=== PATIENT | female | born 1990 | race Caucasian/White ===

== ENCOUNTER → 2018-07-14 11:07 | Outpatient (CLI) | payer MEDICAID, SELFPAY ==
[2018-07-14 10:27] VITALS: BMI 24.2
[2018-07-14 13:10] LABS: Absolute Lymphocyte Count 2.04 X10^3/ul (0.83-4.51); Absolute Neutrophil Count 3.5 X10^3/uL (2.0-7.7); Basophil# 0.04 X10^3/uL; Basophil% 0.6 % (0-1); Eosinophil# 0.14 X10^3/uL; Eosinophils% 2.2 % (0-5); Hematocrit 40.9 % (37-47); Lymphocyte # 2.04 X10^3/ul (4.0); Lymphocyte % 32.6 % (19-41); Mean Corp Hgb Conc 31.8 g/gl (32-36); Mean Corpuscular Volume 88.1 fL (81-99); Monocyte# 0.54 X10^3/uL; Monocyte% 8.6 % (0-10); Neutrophil # 3.47 X10^3/uL (2.7-7.7); Neutrophil % 55.7 % (47-70); POSITIVE COUNT NO; POSITIVE DIFFERENTIAL NO; POSITIVE MORPHOLOGY NO; Platelet Count 254 K/mm3 (150-450); RBC Distribution Width CV 14.3 % (11.6-14.6); RBC Distribution Width SD 45.7 fl (35.1-43.9); Red Blood Count 4.64 M/mm3 (4.2-5.4); White Blood Count 6.3 K/mm3 (4.4-11.0)
[2018-07-14 13:29] LABS: ALB/GLOB Ratio 0.9 RATIO (0.9-2.4); AST(SGOT) 17 U/L (15-37); Alanine Aminotransfer ALT/SGPT 18 U/L (13-56); Albumin, Serum 3.8 g/dL (3.2-5.0); Alkaline Phosphatase 84 U/L (45-117); Anion Gap 6 (5-15); BUN 16 mg/dL (7-18); BUN/Creat Ratio 21.4 RATIO (10-20); Calcium,Total 8.9 mg/dL (8.5-10.1); Chloride 106 mmol/L (98-107); Creatinine, Serum 0.75 mg/dL (0.55-1.02); EST Glomerular Filtration Rate 98 mL/min (>60); Est Glom Filt Rate - Afr Amer 118 mL/min (>60); Globulin 4.2 g/dL (2.2-4.2); Glucose 86 mg/dL (74-106); Potassium 4.5 mmol/L (3.5-5.1); Sodium Level 139 mmol/L (136-145); Thyroid Stim Hormone (TSH) 4.87 uIU/mL (0.358-3.74)
[2018-07-14 14:06] LABS: HIV - WCH Non-Reactive (Nonreactive)
[2018-07-15 06:06] LABS: HEPATITIS B SURFACE AG Negative (Negative); Hepatitis A AB, Total Negative (Negative); Hepatitis A IgM Antibody Negative (Negative); Hepatitis B Core AB IgM Negative (Negative); Hepatitis B Core Ab Total Negative (Negative); Hepatitis C Ab <0.1 s/co ratio (0.0-0.9)
[2018-07-15 11:25] LABS: Hep B Surface Antibodies Non Reactive (.)
[2018-07-20 16:27] LABS: T4 Free Direct 0.87 ng/dL (0.76-1.46)
== END ==
PROVIDERS: PCP Internal Medicine; Visit Provider Nurse Practitioner Family
DX: F19.10 Other psychoactive substance abuse, uncomplicated (principal); F32.9 Major depressive disorder, single episode, unspecified; F41.9 Anxiety disorder, unspecified
CPT/HCPCS: 36415; 80053; 84439; 84443; 85025; 86703; 86704; 86705; 86706; 86708; 86709; 86803; 87340

== ENCOUNTER 2019-05-05 21:55 | Emergency (ER) | payer MEDICAID, SELFPAY ==
[2018-08-12 11:41] VITALS: BMI 24.2
[2019-05-05 21:56] VITALS: BP 108/69; PULSE 90; RESP 18; TEMP 36.4; O2SAT 97; BMI 25.6
--- NOTE | 2019-05-05 22:09 | ED.VISSUMM ---
- ER Visit Summary Date of Service: 05/05/19 Chief Complaint: Left leg abscess History of Present Illness: The patient is a 28 F who presents with an abscess to her left leg that has been getting worse over the last 4 days. Patient states it started draining today. Patient denies any fevers or chills. Patient denies any radiation of the pain. Patient states the pain is localized to the left popliteal fossa. Patient denies any paresthesias or weakness. Physical Examination: Vital signs are stable. Patient is afebrile. Patient is in no acute distress. Skin is warm dry. There is tenderness and induration over the left popliteal area. There is an open abscess in the popliteal fossa. There is some mild purulent drainage noted. There is no fluctuance. There is full range of motion of the left knee. Sensation was intact to light touch bilaterally in the lower extremities. Emergency Department Course and Treatment: The abscess is already open and is currently draining. I was able to express some purulent material from the abscess. There is also some bleeding noted from the abscess. There does not appear to be any further purulent material in the abscess. Patient was instructed to use warm compresses to the area. Patient was given a prescription for Keflex. Patient was instructed to follow-up with a primary care physician in 5 to 7 days. Patient was given a referral since she does not have a primary care physician. Patient understood and was agreeable with the plan. All questions were answered. Disposition: Discharge home Impression: Abscess left popliteal fossa This note was generated with [employer] dictation software. It may contain incorrect words, spelling, and punctuation that were not noted in review of the chart prior to signing ED Disposition - Plan for ED Patient: Disposition: Home or Assisted Living Diagnosis: Abscess of left lower leg Instructions: ABSCESS, Antiobiotic Treatment Only Prescriptions: Cephalexin [Keflex] 500 mg PO Q6 #40 cap Prescription Printed Referrals: Care Physician,No Primary [Primary Care Provider] - Korey Hartman MD [STAFF PHYSICIAN] - 5-7 Days
[2019-05-05] MEDS: Cephalexin 250 MG Capsule 500 MG PO (22:26)
== END 2019-05-05 22:29 | disposition home or self-care (01) ==
LOC: ED 22:16
PROVIDERS: Emergency Provider Emergency Medicine
DX: L02.416 Cutaneous abscess of left lower limb (principal); F32.9 Major depressive disorder, single episode, unspecified; F41.9 Anxiety disorder, unspecified; Z79.899 Other long term (current) drug therapy; F17.200 Nicotine dependence, unspecified, uncomplicated
CPT/HCPCS: 99283

== ENCOUNTER → 2024-07-07 | Outpatient (CLI) | payer BC, SELFPAY ==
[2024-07-07 17:52] LABS: Absolute Lymphocyte Count 2.37 X10^3/uL (0.83-4.51); Absolute Neutrophil Count 2.3 X10^3/uL (2.0-7.7); Basophil# 0.05 X10^3/uL; Eosinophil# 0.07 X10^3/uL; Eosinophils% 1.4 % (0-5); Hematocrit 35.7 % (37-47); Hemoglobin 12.1 g/dL (12.0-15.0); Lymphocyte # 2.37 X10^3/ul (0.83-4.51); Mean Corp Hgb Conc 33.9 g/dL (32-36); Mean Corpuscular Volume 88.4 fL (81-99); Mean Platelet Vol. 10.5 fl (6.2-12.0); Monocyte# 0.39 X10^3/uL; Monocyte% 7.6 % (0-10); NRBC Flagged by Analyzer 0 % (0-5); Neutrophil # 2.25 X10^3/uL (2.7-7.7); Neutrophil % 43.6 % (47-70); Platelet Count 239 K/mm3 (150-450); RBC Distribution Width CV 11.9 % (11.6-14.6); RBC Distribution Width SD 39.1 fl (35.1-43.9); Red Blood Count 4.04 M/mm3 (4.2-5.4); White Blood Count 5.2 K/mm3 (4.4-11.0)
[2024-07-07 19:13] LABS: ALB/GLOB Ratio 1.5 RATIO (0.9-2.4); AST(SGOT) 23 U/L (<=31); Alanine Aminotransfer ALT/SGPT 14 U/L (<=34); Albumin, Serum 4.4 g/dL (3.5-5.0); Alkaline Phosphatase 59 U/L (35-104); Anion Gap 12 (5-15); BUN 17 mg/dL (4-19); BUN/Creat Ratio 23.3 RATIO (10-20); Calcium,Total 9.4 mg/dL (7.6-11.0); Carbon Dioxide 23.4 mmol/L (21.0-32.0); Chloride 103 mmol/L (98-108); Creatinine, Serum 0.73 mg/dL (0.70-1.20); EST Glomerular Filtration Rate 111 (>60); Globulin 2.9 g/dL (2.2-4.2); Glucose 77 mg/dL (70-99); Potassium 3.7 mmol/L (3.3-5.1); Protein, Total 7.3 g/dL (5.9-8.4); Sodium Level 139 mmol/L (133-145); Total Bilirubin 0.93 mg/dL (0.00-1.30)
[2024-07-07 19:42] LABS: Vitamin B12 497 pg/mL (180-914)
[2024-07-10 15:08] LABS: Deamidated Gliadin IgA 3 units (0-19); Deamidated Gliadin IgG 9 units (0-19); Endomysial Antibody IgA Negative (Negative); Immunoglobulin A 151 mg/dL (87-352); t-Transglutaminase IgA <2 U/mL (0-3)
[2024-07-11 16:09] LABS: Anti-Thyroglobulin AB 3.6 IU/mL (0.0-0.9); Thyroid Peroxidase AB 12 IU/mL (0-34)
== END | disposition home or self-care (01) ==
LOC: MFPLAB 16:38
PROVIDERS: Referring Provider Family Medicine; Visit Provider Family Medicine
DX: R79.89 Other specified abnormal findings of blood chemistry (principal); R53.83 Other fatigue; R14.0 Abdominal distension (gaseous)
CPT/HCPCS: 36415; 80053; 82607; 82784; 83516; 84432; 84439; 84443; 85025; 86255; 86376; 86800

== ENCOUNTER → 2024-07-27 | Outpatient (CLI) | payer BC, SELFPAY ==
[2024-07-27 18:32] LABS: Ferritin 43 ng/mL (22-378); Iron 63 ug/dL (50-170); Iron Binding Capacity,Total 278 ug/dL (250-450); Iron Binding Capacity,Unsat 215 ug/dL (228-428)
== END | disposition home or self-care (01) ==
LOC: MFPLAB 17:02
PROVIDERS: PCP Family Medicine; Referring Provider Family Medicine; Visit Provider Family Medicine
DX: K90.41 Non-celiac gluten sensitivity (principal)
CPT/HCPCS: 36415; 82728; 83540; 83550

== ENCOUNTER → 2024-11-22 | Outpatient (CLI) | payer BC, SELFPAY ==
--- NOTE | 2024-11-22 17:02 | RAD_ITS ---
PROCEDURE: KNEE 4 OR MORE VIEWS 11/22/2024 REASON FOR EXAM: PAIN TECHNIQUE: KNEE 4 OR MORE VIEWS COMPARISON: No FINDINGS: No acute bone or soft tissue pathology. No degeneration. RAD/Knee 4 or More Views IMPRESSION: Normal exam Reading Location: [place] [id number]
--- NOTE | 2024-11-22 17:02 | RAD_ITS ---
PROCEDURE: HIPS B/L MIN 2 VIEWS W/ PELVIS 11/22/2024 REASON FOR EXAM: PAIN TECHNIQUE: HIPS B/L MIN 2 VIEWS W/ PELVIS COMPARISON: No FINDINGS: Bilateral tiny hip region osteophytes. No degeneration otherwise noted. No acute bone or soft tissue pathology. Intact pelvic ring. RAD/Hips B/L min 2 views w/ Pelvis IMPRESSION: Minimal bilateral hip osteoarthritis. [facility]
--- NOTE | 2024-11-22 17:02 | RAD_ITS ---
PROCEDURE: KNEE 4 OR MORE VIEWS 11/22/2024 REASON FOR EXAM: PAIN TECHNIQUE: KNEE 4 OR MORE VIEWS COMPARISON: No FINDINGS: No acute bone or soft tissue pathology. No degeneration. RAD/Knee 4 or More Views IMPRESSION: Normal exam Reading Location: [place] [id number]
--- NOTE | 2024-11-22 17:02 | RAD_ITS ---
PROCEDURE: HAND MIN 3 VIEWS 11/22/2024 REASON FOR EXAM: PAIN TECHNIQUE: HAND MIN 3 VIEWS COMPARISON: none RAD/Hand Min 3 Views IMPRESSION: No acute fracture or dislocations. No significant degenerative changes. No acute soft tissue abnormalities. No radiographic foreign body. Reading Location: [facility]
--- NOTE | 2024-11-22 17:02 | RAD_ITS ---
PROCEDURE: SHOULDER MIN 2 VIEWS 11/22/2024 REASON FOR EXAM: PAIN TECHNIQUE: SHOULDER MIN 2 VIEWS COMPARISON: none RAD/Shoulder min 2 Views IMPRESSION: No acute fracture or dislocations. No significant degenerative changes. No acute soft tissue abnormalities. Subcutaneous contraceptive noted. Reading Location: [facility]
--- NOTE | 2024-11-22 17:02 | RAD_ITS ---
PROCEDURE: SHOULDER MIN 2 VIEWS 11/22/2024 REASON FOR EXAM: PAIN TECHNIQUE: SHOULDER MIN 2 VIEWS COMPARISON: none RAD/Shoulder min 2 Views IMPRESSION: No acute fracture or dislocations. No significant degenerative changes. No acute soft tissue abnormalities. No radiographic foreign body. Reading Location: [facility]
--- NOTE | 2024-11-22 17:02 | RAD_ITS ---
PROCEDURE: HAND MIN 3 VIEWS 11/22/2024 REASON FOR EXAM: PAIN TECHNIQUE: HAND MIN 3 VIEWS COMPARISON: none RAD/Hand Min 3 Views IMPRESSION: No acute fracture or dislocations. No significant degenerative changes. No acute soft tissue abnormalities. No radiographic foreign body. Reading Location: [facility]
[2024-11-22 17:49] LABS: Hematocrit 33.1 % (37-47); Hemoglobin 11.3 g/dL (12.0-15.0); Immature Granulocytes Count 0.010 X10^3/uL (0.0-0.0); Mean Corp Hgb Conc 34.1 g/dL (32-36); Mean Corpuscular Volume 86.6 fL (81-99); Mean Platelet Vol. 10.6 fl (6.2-12.0); NRBC Flagged by Analyzer 0 % (0-5); Platelet Count 187 K/mm3 (150-450); RBC Distribution Width CV 12.3 % (11.6-14.6); RBC Distribution Width SD 39.2 fl (35.1-43.9); Red Blood Count 3.82 M/mm3 (4.2-5.4); White Blood Count 4.9 K/mm3 (4.4-11.0)
[2024-11-22 18:34] LABS: AST(SGOT) 18 U/L (<=31); Alanine Aminotransfer ALT/SGPT 12 U/L (<=34); Albumin, Serum 4.3 g/dL (3.5-5.0); Alkaline Phosphatase 47 U/L (35-104); Anion Gap 13 (5-15); BUN 21 mg/dL (4-19); BUN/Creat Ratio 28.2 RATIO (10-20); Calcium,Total 9.4 mg/dL (7.6-11.0); Carbon Dioxide 21.6 mmol/L (21.0-32.0); Chloride 104 mmol/L (98-108); Globulin 2.7 g/dL (2.2-4.2); Glucose 86 mg/dL (70-99); Potassium 3.7 mmol/L (3.3-5.1)
[2024-11-23 16:35] LABS: Ferritin 39 ng/mL (22-378); Iron 101 ug/dL (50-170); Iron Binding Capacity,Total 285 ug/dL (250-450); Iron Binding Capacity,Unsat 184 ug/dL (228-428); Vitamin B12 413 pg/mL (180-914)
[2024-11-24 12:08] LABS: ANTINUCLEAR ANTIBODIES DIRECT Negative (Negative)
[2024-11-25 11:08] LABS: Lyme Scn Total Ab w/Rflx Negative (Negative)
== END | disposition home or self-care (01) ==
PROVIDERS: PCP Family Medicine; Referring Provider Family Medicine; Visit Provider Family Medicine
DX: D64.9 Anemia, unspecified (principal); M79.643 Pain in unspecified hand; M25.569 Pain in unspecified knee; M25.559 Pain in unspecified hip; M25.519 Pain in unspecified shoulder
CPT/HCPCS: 36415; 73030; 73130; 73521; 73564; 80053; 82607; 82728; 83540; 83550; 84439; 84443; 85025; 86038; 86431; 86618